=== PATIENT | female | born 1940 | race African-American/Black ===

== ENCOUNTER 2023-11-12 18:58 | Emergency (ER) | payer OTHER, MEDICAID ==
[~2023-11-12] VITALS: Ht 160 cm; Wt 67.0 kg
[2023-11-12 19:01] VITALS: BP 150/74; PULSE 66; RESP 16; O2SAT 99
[2023-11-12 21:43] VITALS: TEMP 98.6
[2023-11-12] MEDS: ACETAMINOPHEN 500MG TABLET PO ONE (21:43)
== END 2023-11-12 23:28 | disposition home or self-care (01) ==
LOC: ER 18:58
DX: S80.02XA Contusion of left knee, initial encounter (principal); S09.90XA Unspecified injury of head, initial encounter; J45.909 Unspecified asthma, uncomplicated; F32.9 Major depressive disorder, single episode, unspecified; W18.39XA Other fall on same level, initial encounter; Y93.89 Activity, other specified; Y92.89 Other specified places as the place of occurrence of the external cause; Y99.8 Other external cause status
CPT/HCPCS: 73562; 99284

== ENCOUNTER 2024-04-20 07:50 | Emergency (ER) | payer OTHER, MEDICAID ==
[~2024-04-20] VITALS: Ht 167.6 cm; Wt 70.0 kg
[2024-04-20 07:52] VITALS: TEMP 97.8; O2SAT 100
[2024-04-20 08:35] LABS: BASOPHILS % 0.6 % (0.0-2.0); EOSINOPHILS % 1.2 % (0.0-5.0); HEMATOCRIT. 37.1 % (36.0-48.0); HEMOGLOBIN. 12.5 g/dL (12.0-16.0); LYMPHOCYTES % 10.9 % (20.0-50.0); MEAN CORPUSCULAR HEMOGLOBIN 31.6 pg (28.0-32.0); MEAN CORPUSCULAR HGB CONC 33.7 g/dL (31.0-37.0); MEAN CORPUSCULAR VOLUME 93.7 fL (81.0-99.0); MEAN PLATELET VOLUME 7.6 fl (7.4-10.4); MONOCYTES % 5.4 % (2.0-8.0); NEUTROPHILS % 81.9 % (40.0-76.0); PLATELET 233 x1000/uL (130-400); RED BLOOD CELL COUNT 3.95 mill/uL (4.2-5.4); RED CELL DISTRIBUTION WIDTH 12.9 % (11.6-14.6); WHITE BLOOD COUNT 8.4 x1000/uL (4.5-11.0)
[2024-04-20] MEDS: ONDANSETRON HCL 4MG/2ML INJ IV NR (08:38)
[2024-04-20] MEDS: PANTOPRAZOLE SODIUM 40 MG/VIAL IV NR (08:38)
[2024-04-20 08:41] LABS: POTASSIUM 3.7 mEq/L (3.5-5.1)
[2024-04-20 08:43] LABS: CALCIUM 9.7 mg/dL (8.7-10.4)
[2024-04-20 08:47] LABS: CREATININE 1.2 mg/dL (0.6-1.0)
[2024-04-20 11:45] VITALS: BP 146/77; PULSE 81; RESP 14; O2SAT 100
== END 2024-04-20 11:57 | disposition home or self-care (01) ==
LOC: ER 07:50 → CANBEDREQ 11:36 → ER 11:57
DX: R11.2 Nausea with vomiting, unspecified (principal); J45.909 Unspecified asthma, uncomplicated; Z90.49 Acquired absence of other specified parts of digestive tract
CPT/HCPCS: 99284; 96365; 96375; 80048; 83690; 85025; 36415; 93005; J2405; J2470

== ENCOUNTER 2024-12-18 11:32 | Emergency (ER) | payer MEDICAID, OTHER ==
[~2024-12-18] VITALS: Ht 157.5 cm; Wt 64.0 kg
[2024-12-18 11:35] VITALS: O2SAT 98
[2024-12-18] MEDS: ONDANSETRON HCL 4MG/2ML INJ IV STA (12:28)
[2024-12-18] MEDS: SODIUM CHLORIDE 0.9% 1,000 ML IV ONE (12:29)
[2024-12-18 12:30] LABS: BASOPHILS % 0.5 % (0.0-2.0); EOSINOPHILS % 2.5 % (0.0-5.0); HEMATOCRIT. 36.1 % (36.0-48.0); HEMOGLOBIN. 12.2 g/dL (12.0-16.0); LYMPHOCYTES % 10.7 % (20.0-50.0); MEAN CORPUSCULAR HEMOGLOBIN 31.5 pg (28.0-32.0); MEAN CORPUSCULAR HGB CONC 33.7 g/dL (31.0-37.0); MEAN CORPUSCULAR VOLUME 93.5 fL (81.0-99.0); MEAN PLATELET VOLUME 8.1 fl (7.4-10.4); NEUTROPHILS % 81.3 % (40.0-76.0); PLATELET 220 x1000/uL (130-400); RED BLOOD CELL COUNT 3.86 mill/uL (4.2-5.4); RED CELL DISTRIBUTION WIDTH 13.4 % (11.6-14.6); WHITE BLOOD COUNT 8.8 x1000/uL (4.5-11.0)
[2024-12-18 12:42] LABS: PROTHROMBIN TIME 10.3 sec (9.6-11.0)
[2024-12-18 12:50] LABS: CHLORIDE 103 mEq/L (98-107); SODIUM 137 mEq/L (136-145)
[2024-12-18 12:51] LABS: CALCIUM 9.2 mg/dL (8.7-10.4); CARBON DIOXIDE 27 mEq/L (21-32)
[2024-12-18 12:56] LABS: CREATININE 1.1 mg/dL (0.6-1.0); GLUCOSE 111 mg/dL (70-105); UREA NITROGEN BLOOD 13 mg/dL (9-23)
[2024-12-18 12:58] LABS: TROPONIN I HIGH SENSITIVITY 4 ng/L (3.0-34)
[2024-12-18] MEDS: DIPHENOXYLATE/ATROPINE 2.5/0.025MG TABLET PO ONE (13:47)
[2024-12-18] MEDS ORDERED: TOPUD MT (16:45)
[2024-12-18] MEDS ORDERED: ONDA4TAB50 MT ×2 (16:45)
[2024-12-18] MEDS ORDERED: DIPH1TAB MT (16:45)
[2024-12-18 17:03] VITALS: BP 124/57; PULSE 84; RESP 17; TEMP 36.4; O2SAT 99
== END 2024-12-18 17:05 | disposition home or self-care (01) ==
LOC: ER 11:32
DX: K52.9 Noninfective gastroenteritis and colitis, unspecified (principal); J45.909 Unspecified asthma, uncomplicated; F03.93 Unspecified dementia, unspecified severity, with mood disturbance; I49.9 Cardiac arrhythmia, unspecified; Z91.148 Patient's other noncompliance with medication regimen for other reason
CPT/HCPCS: 99284; 96374; 96361; 80048; 83690; 85025; 85610; 84484; 36415; 93005; J2405; J7030